=== PATIENT | male | born 1960 | race Caucasian/White ===

== ENCOUNTER 2017-03-23 15:11 | Emergency (ER) | payer MEDICARE, MEDICAID ==
[2017-03-23 15:19] VITALS: BP 133/74; PULSE 107; RESP 24; O2SAT 94
[2017-03-23] MEDS ORDERED: predniSONE 20 mg Tablet PO ONE (15:25)
[2017-03-23] MEDS ORDERED: Famotidine Inj 20 MG in IV Premix 1 EACH IV ONE (15:25)
--- NOTE | 2017-03-23 15:25 | ED.REPORT ---
HPI-Allergic Reaction Date of Service Mar 23, 2017 ED Provider: Dr. Jeff Ford MD A 56 year old male with a history of developmental delay, diabetes mellitus and a remote history of a bee allergy presents to the ED with his caregiver complaining of SOB that began just prior to arrival. The patient was stung by a bee and believes he is currently experiencing an allergic reaction. He reports one similar episode previously 38 years ago. Associated symptoms currently include tingling in his throat and itchiness to the back of his lower extremities. He denies any rash, nausea, vomiting or diarrhea. Nursing Notes Stated Complaint: ALLERGIC REACTION TO BEE STING Chief Complaint: Allergic Reaction Nursing Notes Reviewed: Yes Allergies: Coded Allergies: No Known Allergies (Unverified , 04/13/16) Scheduled Epinephrine (Epipen 2-Papito) 0.3 Mg/0.3 Ml Auto.injct 0.3 MG IJ ONCE Scheduled PRN diphenhydrAMINE HCl (Benadryl) 25 Mg Capsule 50 MG PO QID PRN PRN For Itching General Time Seen by MD: 15:24 Chief Complaint Allergic reaction, Insect bite/sting Hx Obtained From: Patient Arrived By: Walk-in Onset Occurred: Just prior to arrival Context of Onset: Insect bite/sting Symptom Duration: Since onset Progression Since Onset: Gradually worsening Location: : Leg left: Leg right Quality: Itching Severity: Current: Mild Severity: Maximum: Moderate Associated with: Reports: Itching localized, Throat swollen, Denies: Nausea, Rash/redness all over, Vomiting Pertinent Negative: Pt denies other symptoms Recent Healthcare: No recent doctor visit, No recent hospitalization Similar Sx Previous: Yes Past Medical History Past Medical History Notes: PCP: Dr. Annalise Richard Past Medical History Developmental delay Diabetes mellitus Remote history of allergy to bees Past Surgical History None reported. Social History Lives with a caregiver Other Social History: Good social support, Local resident Ambulatory Status Independent Review of Systems Ears / Nose / Throat: Reports: Throat pain (Tingling in thorat) Respiratory: Reports: Shortness of breath GI: Denies: Diarrhea, Nausea, Vomiting Skin: Reports Itching, Denies Rash Complete sys rev & neg: except as marked. Physical Exam Initial Vital Signs Vital Signs (First) Date Time Temp Pulse Resp B/P Pulse Ox O2 Delivery O2 Flow Rate FiO2 03/23/17 15:19 36.8 107 24 133/74 94 Room Air Initial VS: Reviewed Head / Eyes: Atraumatic, Normocephalic, PERRL Neck: Supple, Non-tender, Full range of motion Extremities: Vascular intact, Neuro intact, No swelling, No tenderness Neurologic: Alert, Oriented, Nonfocal Psychiatric: Mood/affect normal, Behavior normal, Normal thought content General/Constitutional: Awake, Alert, No acute distress Respiratory / Chest: Atraumatic Tachypneic with increased work of breathing Cardiovascular: Regular rhythm, Heart sounds NL, No gallop, No murmurs, No rubs Heart Rate / Rhythm: Positive: Tachycardia Skin: Atraumatic, Color NL, No rash, Warm, Dry, Intact ENT: Atraumatic, Mucous membranes moist Mouth: Negative: Angioedema present..., Lip swelling present, Tongue abnormal Pharynx / Tonsils / Uvula: Positive: Uvula edematous Abdomen: Atraumatic, Soft Interpretation & Diagnostics ECG Interpretation ECG Interpretation: Sinus tachycardia Rate 106 bpm No acute abnormalities Time: 16:09 Interpreted by: ED physician Re-Eval/Medical Decision Med Decision/Clinical Course Uvular swelling and diffuse itching after a bee sting. He is mildly tachycardic and normotensive without a visible rash. Treated with an EpiPen because of multisystem involvement felt better with better with that. Also given prednisone Pepcid and Benadryl. He is observed for 2 hours in the emergency department with no progression. The persistent minimal tachycardia on discharge thought likely related to the epinephrine and/or his baseline. He was provided with an EpiPen and a short taper of prednisone. Re-Evaluation/Progress : Time of Eval: 18:07 Patient Status: Condition improved Re-Evaluation/Progress Note: Symptoms have improved upon recheck. He is informed of his current results and the intended treatment plan to discharge with follow up. All questions are addressed. He understands and agrees with the plan. Counseled Regarding: Diagnosis, Need for follow-up, When/why to return to ED Discharge & Departure Primary Impression: Allergic reaction to bee sting Disposition: Home Discharge Condition All VS Reviewed: Yes Condition: Improved Patient Instructions: General Allergic Reaction (ED) Additional Instructions: Thank you for entrusting us with your care today. Your emergency department evaluation today included interview, examination, observtaion and EKG. We gave IM epinepherine for a possible mild anaphylactic reaction with itching and swelling in the throat. Take Benadryl every 6 as needed for itch/rash Take prednisone as directed for the next 4 days. Use the EpiPen as directed if you develop any severe symptoms such as difficulty breathing or severe swelling. Return to ED if epi pen is used. Schedule a follow-up appointment with your primary care physician in the next week for a recheck. Please return to the emergency department for any new or worsening conditions including any worsening shortness of breath, severe rash/redness, swelling in your throat or tongue, nausea, vomiting, lightheadedness, or dizziness. Referrals: Annalise Richard (PCP) Scribe Attestation Portions of this note were transcribed by Kaylie Castillo. I, Dr. Ford, personally performed the history, physical exam and medical decision-making; I reviewed and confirmed the accuracy of the information in the transcribed note. Signed by: Kaylie Castillo, 03/23/17. copies to: Annalise Richard Donald L MD Mar 23, 2017 15:25 KAYLIE CASTILLO Mar 23, 2017 15:33
[2017-03-23 15:34] VITALS: BP 124/63; PULSE 104; RESP 16; O2SAT 95
[2017-03-23 15:47] VITALS: BP 139/76; PULSE 106; RESP 23; O2SAT 96
[2017-03-23 16:55] VITALS: BP 120/60; PULSE 103; RESP 20; O2SAT 96
[2017-03-23 17:41] VITALS: BP 119/64; PULSE 101; RESP 20; O2SAT 95
[2017-03-23] MEDS ORDERED: DIPH25CA6 PO (18:15)
[2017-03-23] MEDS ORDERED: EPIN0.3P2 IJ (18:15)
== END 2017-03-23 18:33 | disposition home or self-care (01) ==
LOC: SED 15:11
DX: T63.441A Toxic effect of venom of bees, accidental (unintentional), initial encounter (principal); R06.02 Shortness of breath; Y93.9 Activity, unspecified; Y92.9 Unspecified place or not applicable; Y99.8 Other external cause status; E11.9 Type 2 diabetes mellitus without complications; Z91.030 Bee allergy status
CPT/HCPCS: 93005; 96372; 96374; 96375; 99285; J0171; J1200; J3490